=== PATIENT | female | born 1945 | race Caucasian/White ===

== ENCOUNTER 2016-09-04 21:55 | Inpatient (IN) | payer OTHER, MEDICARE ==
--- NOTE | ~2016-09-04 | CN ---
Consultation Report [facility] [address] [place]. [address] NAME: MICHELLE WALDRON : 43 STATUS : ADM IN PAT#: [id number] AGE: 71 ADM/REG DATE : 09/04/16 MR#: [id number] REPORT SERV DATE: 09/07/16 DICTATED BY: BARRY GARY DATE: 09/06/16 REPORT STATUS : Draft TRANSCRIBED BY: MODL DATE: 09/06/16 GI CONSULTATION DATE OF CONSULTATION: 09/06/2016 REASON FOR CONSULTATION: Anemia, history of gastric ulcer. HISTORY OF PRESENT ILLNESS: Ms Waldron is a 71-year-old, morbidly obese female with multiple comorbidities including diabetes, morbid obesity, chronic kidney disease stage III, coronary artery disease, asthma who presented to [facility] with a chief complaint of shortness of breath. She was found to be in atrial fibrillation with rapid ventricular response and also found to have bilateral pneumonia. On exam today, she is also actively wheezing, but has no increased work of breathing. Her hemoglobin and hematocrit have also gone down from 11 and 34.3, to 9.8 and 31.2 respectively. Platelets are 142, INR is 1.3. She denies any overt signs of bleeding. She had a brown bowel movement yesterday, formed, and denies any nausea, vomiting, or abdominal pain. No coffee-ground or hematemesis. She does report some epistaxis which is scant, and she believes that this is related to her irritation from her nasal cannula, and she reports that she has had a history of ulcer in the past and looking back at her records, which does confirm that she had an EGD and colonoscopy by Dr. Soliz, in March 2007 for pancytopenia. EGD showed normal esophagus, stomach showed mild gastritis in the antrum, and a small AVM that was not bleeding along the lesser curvature of the stomach. Coagulation was not attempted with APC. Retroflexed view of the fundus and cardia appeared grossly normal as per our records. Her duodenum was also found to be normal. Colonoscopy was also performed which showed a redundant and difficult colon as per Dr. Soliz's note. Bowel prep was not optimal although 90% of the colonic mucosa was reported to be seen. Small internal hemorrhoids were noted. PAST MEDICAL HISTORY: Diabetes with morbid obesity, depression, chronic kidney disease stage III, coronary artery disease, thrombocytopenia, urinary tract infection, and COPD. PAST SURGICAL HISTORY: Cataract surgery, hysterectomy, splenectomy, parotid gland removal. SOCIAL HISTORY: No smoking, alcohol, or drug use. MEDICATIONS: Reviewed. ALLERGIES: REVIEWED. PHYSICAL EXAMINATION: VITAL SIGNS: The patient is afebrile. Her vital signs are stable. GENERAL: The patient is awake, alert, and oriented x3. Morbidly obese. No acute distress. HEENT: Atraumatic, normocephalic. Anicteric. Mucous membranes moist. CARDIAC: Currently irregularly irregular. CHEST: Bilateral wheezing. Consultation Report [place] [id number] [place]. [address] NAME: MICHELLE WALDRON : 43 STATUS : ADM IN [facility]#: [id number] AGE: 71 ADM/REG DATE : 09/04/16 MR#: [id number] REPORT SERV DATE: 09/07/16 DICTATED BY: BARRY GARY DATE: 09/06/16 REPORT STATUS : Draft TRANSCRIBED BY: MODL DATE: 09/06/16 ABDOMEN: Obese, soft, minimal tenderness to palpation in the right lower quadrant but no rebound or guarding. Bowel sounds are normoactive. No epigastric pain. LABORATORY DATA: Labs show WBC 12.9, hemoglobin 9.8, hematocrit 31.2, platelets 142. INR is 1.3. Sodium 144, potassium 4.4, chloride 115, bicarb 24, BUN 24, creatinine 2.23. IMPRESSION AND PLAN: Anemia without any overt bleeding. No evidence of overt bleeding as there is no melena, coffee-ground or hematemesis. The patient reports brown stool yesterday. There does not appear to be any need for any urgent endoscopy at this time. She reports history of ulcer disease and believes that this was on the 2006 endoscopy. I will look further at her other records at the other hospitals particularly in the [facility] to see if we can obtain any endoscopy report. Otherwise EGD and colonoscopy by Dr. Soliz are as mentioned above. I will continue to follow with you for now. Please call with any questions. MODESTO/NEHA Barry Gary MD / [id number] CC: Nancy Kiser M.D.
--- NOTE | ~2016-09-04 | DS ---
Discharge Summary [id number] [place]. [address] NAME: MICHELLE BROWN : 43 STATUS : ADM IN [facility]#: [id number] AGE: 71 ADM/REG DATE : 09/04/16 MR#: [id number] REPORT SERV DATE: 09/16/16 DICTATED BY: IVAN CALDERÓN DATE: 09/16/16 REPORT STATUS : Draft TRANSCRIBED BY: MODL DATE: 09/16/16 ADMISSION DATE: 09/04/2016 DISCHARGE DATE: 09/16/2016 DISCHARGE DIAGNOSES: 1. Acute atrial fibrillation with rapid ventricular response. Currently rate controlled. 2. Atrial thrombus. 3. Right abdominal wall hematoma. 4. Chronic kidney disease. Creatinine back to baseline. 5. Acute kidney disease, now resolved. 6. Lymphotocytosis. Review of records reveal that it is chronic. 7. Fungal dermatitis of the skin folds of the abdomen. 8. Anemia most likely related to use of anticoagulation. 9. Type 2 diabetes mellitus. 10.Gout. 11.Gastroesophageal reflux. 12.Cervical myelopathy. 13.Rheumatoid arthritis. 14.Coronary artery disease. 15.Hyperlipidemia. 16.Osteoporosis. 17.Generalized debility. CONSULTANTS DURING THIS HOSPITALIZATION: 1. Dr. Indigo Marcelo off Gastroenterology. 2. Ramos Allen MD, of Cardiology. 3. Corbin Castellano M.D., of Cardiology. 4. Bonifacio Guzman M.D., [facility], [facility], of Cardiology. INVASIVE PROCEDURES DONE DURING THIS HOSPITALIZATION: Transesophageal echocardiogram as outlined in the interim summary dictated by Dr. Su. BRIEF HISTORY OF PRESENT ILLNESS: The patient is a 71-year-old female transferred from [facility] with a medical history of morbid obesity, chronic kidney disease stage 3, COPD came in with increased shortness of breath to atrial fibrillation with rapid ventricular response. For detailed history and physical exam, please see note dictated by Dr. Naveen Beavers on 09/04/2016. HOSPITAL COURSE: After being admitted to the hospital, this patient was followed by Dr. Su. Please refer to interim summary dictated by Dr. Su on 09/12/2016. I took over this patient's care on 09/14/2016. This patient was doing fairly well. She was noted to have atrial thrombus. She had been placed on Eliquis despite the elevated creatinine and dose adjustments were done. She continued to improve. She did have ESBL UTI that has been completely treated with seven days of meropenem. Meropenem has now been discontinued. Her right wall abdominal hematoma has remained stable. Her H and H have remained fairly stable around 9 to 10. All consultants have signed off. We have been able to wean her off but we Discharge Summary [place] [address] [facility] [address] NAME: MICHELLE BROWN : 43 STATUS : ADM IN PAT#: [id number] AGE: 71 ADM/REG DATE : 09/04/16 MR#: [id number] REPORT SERV DATE: 09/16/16 DICTATED BY: IVAN CALDERÓN DATE: 09/16/16 REPORT STATUS : Draft TRANSCRIBED BY: NEHA DATE: 09/16/16 will assess her home O2 with ambulation as she continuously has COPD and wheezing. Otherwise, she remains stable. Her diabetes was managed with subcutaneous insulin. We will place her on insulin as she would be a better candidate with her chronic kidney disease. Otherwise she is being discharged in stable condition to follow up with subspecialty physicians and primary care physician. DISCHARGE DISPOSITION: Home. DISCHARGE ACTIVITY: As tolerated. DISCHARGE DIET: 1800-calorie [employer] [employer] Diet. DISCHARGE MEDICATIONS: Eliquis 2.5 mg p.o. twice daily, Cardizem CD 240 mg once daily, NovoLog subcu 5 units prior to each meal 3 times daily, Lopressor 25 mg p.o. twice daily, Nystat powder twice daily to the skin folds of the abdomen. Sodium bicarb 1300 mg once daily, DuoNeb every four hours via nebulizer. Dulera 2 puffs twice daily, Levemir 10 units subcu at bedtime, albuterol two puffs every four hours p.r.n. for shortness of breath, Visine tears, and Tylenol 100 mg three times daily. DISCHARGE FOLLOWUP: Will be with Dr. Jordy Javier as recommended by Dr. Chiang. With Dr. Donaldo Prado in one week. More than 35 minutes spent planning this patient's discharge, reconciling medications, writing prescriptions, discussing hospital care, and followup with the patient and arranging proper discharge and documenting this discharge. SHERMAN/NEHA Ivan Calderón M.D. / [id number] CC: Dale Camargo MD Calvin Bell, M.D.
--- NOTE | ~2016-09-04 | CN ---
Consultation Report [facility] [address] [place]. [address] NAME: MICHELLE WALDRON : 43 STATUS : ADM IN [facility]#: [id number] AGE: 71 ADM/REG DATE : 09/04/16 MR#: [id number] REPORT SERV DATE: 09/07/16 DICTATED BY: DATE: REPORT STATUS : Draft TRANSCRIBED BY: MODSaida DATE: 09/06/16 CONSULTATION REPORT DATE OF CONSULTATION: REASON FOR CONSULTATION: CKD. HISTORY OF PRESENT ILLNESS: Ms Waldron is a 71-year-old white female with a history of CKD, followed by Dr. Menard in the past. I do not have records, but on review of computer records, it looks like she has had a baseline creatinine of around 2 since 2009 at least. She has known diabetes and hypertension. She has had some type of bleeding disorder and rheumatoid arthritis. She presented to the hospital at another facility and was transferred here with shortness of breath. Creatinine is stable since admission from 2 to 2.2. She states before coming in she was having some urinary hesitancy. No nausea, vomiting, or diarrhea. Shortness of breath is better since admission. Edema is at her baseline. No unusual rashes or skin lesions. No dysuria or hematuria. PAST MEDICAL HISTORY: CKD, stage III; COPD; atrial fibrillation; rheumatoid arthritis; cervical myelopathy; type 2 diabetes; blood clots; hypertension; some type of bleeding disorders; splenectomy; parathyroidectomy; cataract surgery; hysterectomy; hemorrhoid surgery; and spine surgery. FAMILY MEDICAL HISTORY: Positive for cancer and heart disease. No end-stage renal disease. SOCIAL HISTORY: Lives with family. No tobacco, alcohol, or illicit drug use. ALLERGIES: KEFLEX, SULFA, MORPHINE, PENICILLIN, FOSAMAX, GOLD, LACTOSE, AND CHLORINE. MEDICATIONS: At the time of consultation, Lovenox, NovoLog, Lopressor, Mycostatin, and Protonix. REVIEW OF SYSTEMS: A 12-point review of systems was obtained and negative with the exception of that in the HPI. PHYSICAL EXAMINATION: VITAL SIGNS: Temp 99.1, blood pressure 100/52, pulse 111, respiratory rate 18, and O2 saturation is 96%. GENERAL: This is a pleasant, cooperative, overweight white female. She is awake, alert, and oriented x3, in no acute distress, and answers questions appropriately. HEENT: Normocephalic and atraumatic. Conjunctivae are clear. Sclerae are anicteric. Pupils are equal and round. Oral mucosa is moist. NECK: Neck is supple and thick. I do not hear any carotid bruits. RESPIRATIONS: Even and unlabored. Breath sounds are clear to auscultation. Consultation Report [facility] [address] [address] NAME: MICHELLE WALDRON : 43 STATUS : ADM IN PAT#: [id number] AGE: 71 ADM/REG DATE : 09/04/16 MR#: [id number] REPORT SERV DATE: 09/07/16 DICTATED BY: DATE: REPORT STATUS : Draft TRANSCRIBED BY: MODL DATE: 09/06/16 HEART: Rate is irregularly irregular and increased. ABDOMEN: Obese. No CVA tenderness. BACK: Within normal limits. EXTREMITIES: She has a trace to 1+ edema on the left, trace on the right. SKIN: Pale, warm, dry, and intact. No unusual rash or skin lesions. NEURO: No focal deficits. Mood and affect, pleasant and appropriate. PERTINENT LABS AND X-RAYS: She had a V/Q scan, there was low probability of PE. She had bilateral lower extremity ultrasounds that were negative. Urine: It did have 100 mg/dL of protein, 31 red blood cells per high-powered field and moderate bacteria. Sodium 144, potassium 4.4, chloride 115, CO2 of 19, BUN of 24, creatinine of 32.2, calcium 8.4, and albumin of 2.2. Troponin 0.05. WBCs 1200, H and H 9 and 31, and platelets 142,000. BNP of 361. IMPRESSION: 1. Chronic kidney disease, stage III. Creatinine looks to be at baseline. 2. Atrial fibrillation with rapid ventricular response. 3. Chronic obstructive pulmonary disease. 4. Type 2 diabetes. 5. Urinary tract infection. PLAN/RECOMMENDATION: Creatinine is consistent with what looks like her baseline as far back as 2009. We will follow labs one more day. She has already had urine studies. I would not do any further workup. If she is stable again tomorrow, we will sign off. We will follow I's and O's and labs along with you. She is being treated for her urinary tract infection and culture is pending. We will follow along with you. Thank you for the consultation. MARÍA/NEHA STEPHEN Rothman / [id number] CC: Dale Philip M.D.
--- NOTE | ~2016-09-04 | HP ---
History And Physical [place] [address] [place]. [address] NAME: MICHELLE BROWN : 43 STATUS : ADM IN [facility]#: [id number] AGE: 71 ADM/REG DATE : 09/04/16 MR#: [id number] REPORT SERV DATE: 09/07/16 DICTATED BY: JOAN CHÁVEZ DATE: 09/05/16 REPORT STATUS : Draft TRANSCRIBED BY: MODL DATE: 09/05/16 DATE OF ADMISSION: 09/04/2016 CHIEF COMPLAINT: Shortness of breath. Transfer from [facility]. ACCEPTING PHYSICIAN: Dr. Turner. HISTORY OF PRESENT ILLNESS: The patient is a 71-year-old female, past medical history of obesity; CKD stage III; COPD; atrial fibrillation; diabetes type 2; blood clots, not on anticoagulation secondary to bleeding history; hypertension who reports that she has had increasing shortness of breath, has had exposure to flu with son having flu that she lives and more dyspnea on exertion. The patient has also had coughing up sputum, different colors, has had bilateral mild difficulty with breathing including chest discomfort with deep breaths, but no baseline chest discomfort. Has had decreased p.o. intake during this current issue, but reports overall has had slightly increased weight gain. The patient again reports that pain is more pleuritic, this would be with exertion, nonradiating, occurred over the last three days, progressively since today with cough production. There are no worsening or relieving symptoms. The patient upon evaluation at outside facility was noted to be in atrial fibrillation with RVR thought to be in acute COPD exacerbation, concern for PE with elevated D-dimer, and also found to have bilateral pneumonia on imaging, although this report is not currently available. REVIEW OF SYSTEMS: GENERAL: Denies any fever or chills, but has had increased fatigue. HEENT: No vision changes or sore throat. Has had cough. LUNGS: Has cough with sputum production. No wheezing, but has been with increased short of breath, dyspnea on exertion. HEART: Occasional pleuritic type chest discomfort with fast heart rate. ABDOMEN: No nausea, vomiting, or diarrhea. : No dysuria or hematuria. MUSCULOSKELETAL: Has chronic joint pain and swelling in lower extremities with mild numbness in the left lower extremity and it has been somewhat constant. SKIN: No rashes or itching. ENDO: Slightly colder than usual, but no high blood sugars. HEME: No acute bleeding or bruising. LYMPHS: No enlarged lymph nodes on lymph report. PSYCH: No anxiety or hallucinations reported. NEURO: No headache or syncope episodes. 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 SURGICAL HISTORY: Splenectomy, parathyroidectomy, cataracts, hysterectomy, hemorrhoidectomy, cervical spine surgery. History And Physical [address] [address] NAME: MICHELLE BROWN : 43 STATUS : ADM IN [facility]#: [id number] AGE: 71 ADM/REG DATE : 09/04/16 MR#: [id number] REPORT SERV DATE: 09/07/16 DICTATED BY: JOAN CHÁVEZ DATE: 09/05/16 REPORT STATUS : Draft TRANSCRIBED BY: NEHA DATE: 09/05/16 ALLERGIES: TO KEFLEX, SULFA, MORPHINE, LACTOSE, PENICILLIN, FOSAMAX, MILK, AND CHLORINE FROM TAP WATER. SOCIAL HISTORY: No smoking, alcohol, or illicits. Lives with sister and son. FAMILY HISTORY: Heart disease. Colon cancer in mother. Rectal cancer, cirrhosis. Family garage helper, Dr. Jordy Javier, had appointment on 08/11/2016, but did not know, so has not made this appointment. PHYSICAL EXAMINATION: VITAL SIGNS: Heart rate of 129, blood pressure 119/68, oxygenation 95% on 5 L, respiratory rate 17. GENERAL: No acute distress, but obese, elderly. EYES: No scleral icterus. EOMI. ENT: Nares patent. Tongue midline. NECK: No JVD. Large neck. CHEST: Equal chest expansion. RESPIRATORY: Polyphonic breath sounds around with decreased breath sounds in lower lung cruz. Positive cough with mild clearing with cough. CHEST: Increased AP diameter. CV: Irregularly irregular. Bilateral lower extremity edema. Cap refill less than 2 seconds. Warm extremities. ABDOMEN: Soft, nontender. Central obesity. : Deferred. MUSCULOSKELETAL: Moves all extremities x4. Bilateral edema with left side mild. No asymmetric swelling, but reports numbness on the lower extremity on the left side. No erythema and no clear Lb sign. SKIN: Warm and dry. PSYCH: Appropriate mood and affect. NEURO: Alert and oriented. Moves all extremities x4. Symmetrical smile. Sensations intact on right side. Only decreased on left side, leg. Otherwise, the patient reports numbness from prior DVT history and still current numbness. LABS: From outside facility and EKG sinus tachycardia. Chest x-ray report not available. WBC count 16.5, H and H 10.7 and 34.3, MCV 105, platelets 125, bands 1%. Sodium 139, potassium 4.5, chloride 110, BUN 26, creatinine 2.05 prior in the 2s in our system, magnesium 1.8. D-dimer of 1660, high normal about 300 in outside system. INR 1.0. BNP 724. Rapid strep negative. Flu negative. ASSESSMENT AND PLAN: 1. Atrial fibrillation with rapid ventricular response. 2. Bilateral pneumonia reported. 3. Chronic obstructive pulmonary disease history with questionable exacerbation reported from outside facility. History And Physical [address] [address] NAME: MICHELLE BROWN : 43 STATUS : ADM IN [facility]#: [id number] AGE: 71 ADM/REG DATE : 09/04/16 MR#: [id number] REPORT SERV DATE: 09/07/16 DICTATED BY: JOAN CHÁVEZ DATE: 09/05/16 REPORT STATUS : Draft TRANSCRIBED BY: NEHA DATE: 09/05/16 4. Rule out pulmonary embolism and likely deep venous thrombosis with prior history of deep venous thrombosis. 5. Diabetes type 2. 6. Systemic inflammatory response syndrome. 7. Chronic kidney disease stage III. 8. Coronary artery disease. 9. Bleeding history. 10.Hypertension. PLAN: 1. For atrial fibrillation with RVR, the patient has history of atrial fibrillation, this is not new onset as reviewed per records. Treat underlying pneumonia and possible COPD, may be also have a component of DVT. The patient is on atenolol every other day at 12. 12.5 dose. I will start Coreg, diltiazem, and the patient has been given this at outside facility with improvement. Monitor labs and CHADS2-VASc score of 4. The patient declines warfarin at this time as the patient reports that she was told not to take it due to bleeding history and he reports she almost bled out. 2. Bilateral pneumonia. This is reported. Awaiting review of chest x-ray from records. I will order repeat chest x-ray. Levaquin has already been started from outside facility due to allergy history and monitor clinically. Check labs and cultures. 3. Chronic obstructive pulmonary disease history. Questionable exacerbation, but no current active wheeze at this time. O2, DuoNebs. We will hold off steroids at this time and treat underlying pneumonia. 4. Rule out PE, likely DVT. The patient does have elevated D-dimer, although clinical cause for dyspnea, likely secondary to pneumonia. This was confirmed. The patient was already given treatment dose of Lovenox. Given the patient's CKD status, we will change to heparin drip. We will check ultrasound of lower extremities. Unable to perform CT PE protocol due to baseline CKD, has history of left leg blood clot. We will also order V/Q scan which is possible to be intermediate due to recurrent pneumonia component. We will need to obtain records for best course of anticoagulation if positive. 5. Diabetes type 2. Sliding scale insulin. Check A1c. 6. SIRS, tachycardia with leukocytosis. Treatment as above. 7. CKD stage III, stable. 8. Coronary artery disease. Beta carmen. Obtain records. Follows with Dr. Javier. 9. Bleeding history. The patient refuses Coumadin secondary to prior bleed history, although the indications would have been for prior DVTs and atrial fibrillation. I would like to try to obtain records if possible from PCP and garage helper and try to optimize for medication for anticoagulation. 10.Hypertension. I will like to change atenolol to cardioprotective medications of Coreg and additionally add CCB for rate control. 11.All questions answered. DISPOSITION: Pending findings of above. Guarded prognosis secondary to multitude of presenting illnesses. History And Physical [address] [place]. [address] NAME: MICHELLE BROWN JALEEL : 43 STATUS : ADM IN [facility]#: [id number] AGE: 71 ADM/REG DATE : 09/04/16 MR#: [id number] REPORT SERV DATE: 09/07/16 DICTATED BY: JOAN CHÁVEZ DATE: 09/05/16 REPORT STATUS : Draft TRANSCRIBED BY: NEHA DATE: 09/05/16 DDN/NEHA Joan Chávez MD / [id number] CC: vIan Calderón M.D.
--- NOTE | ~2016-09-04 | IDS ---
Interim Discharge Summary [facility] [address] [place]. [address] NAME: MICHELLE BROWN : 43 STATUS : ADM IN [facility]#: [id number] AGE: 71 ADM/REG DATE : 09/04/16 MR#: [id number] REPORT SERV DATE: 09/12/16 DICTATED BY: RANDELL RICK DATE: 09/12/16 REPORT STATUS : Draft TRANSCRIBED BY: MODL DATE: 09/12/16 ADMISSION DATE: 09/04/2016 DISCHARGE DATE: CONSULT: Dr. Allen for Cardiology, Dr. Marcelo for GI, and Dr. Snow for Renal. PROCEDURES DONE: On 09/07/2016, NICOLE shows left atrium was moderately dilated. There are two definitive thrombi in left atrium. The first was a very large thrombus that originated in the left atrial appendage and extended from left atrial appendage across the entire posterior and superior aspect of the left atrium. A second pedunculated, more spherical appearing left atrial appendage thrombus was attached to the interatrial septum. Left and right superior pulmonary veins appear grossly normal in caliber. Left ventricle was grossly normal in size and visually estimated LV ejection fraction of 50%. There was no regional wall motion abnormality seen. Right atrium was mildly dilated. Superior and inferior vena cava appeared normal. There were no mass thrombus seen. Right ventricle grossly normal in size and systolic function. There was no mass thrombus seen. [id number] aortic stenosis with mild regurgitation, secondary to calcific degeneration. Mild mitral stenosis with mild mitral regurg. On 09/08/2016, CT abdomen without contrast: Right abdominis rectus sheath hematoma. Only the abdomen was examined. including the pelvis. suspected hematoma is probably larger than estimated here. No acute intraabdominal process. Small bilateral pleural effusion. REASON FOR ADMISSION: Shortness of breath. HISTORY OF HOSPITAL STAY: A 71-year-old white female transferred from [facility] with past medical history of morbid obesity; chronic kidney disease, stage III; COPD; atrial fibrillation, diabetes type 2; hypertension; presenting with shortness of breath, unknown duration. The patient was transferred from [facility] to [facility] secondary for shortness of breath which is secondary to atrial fibrillation with RVR. Initially also the patient's bilateral pneumonia with subsequent chest x-ray shows negative. More importantly, Cardiology was consulted regarding the patient's atrial fibrillation and the patient underwent a NICOLE which showed a thrombus in the left atrium. In addition, the patient also has aortic stenosis. Once the NICOLE diagnosed, the patient with a left atrium thrombus, the patient was started on anticoagulation. Unfortunately, the patient developed hematoma. The patient required two units of packed RBC when the patient's hemoglobin dropped more than 2 g. Subsequently after transfusion, the patient's hemoglobin has been stable. Cardiology initially put the Coumadin on hold and will be restarting anticoagulation soon. In addition, the patient is also having acute renal failure with a creatinine of 2.85. At this time, ultrasound of the kidney shows nothing significant other than kidneys are not obstructed and atrophy bilaterally with decreased echogenicity. At this time, the patient is being treated medically for the patient's acute renal failure. DIAGNOSES ON DISCHARGE: 1. Shortness of breath secondary to atrial fibrillation and RVR, much improved. Interim Discharge Summary [address] [address] NAME: MICHELLE BROWN : 43 STATUS : ADM IN [facility]#: [id number] AGE: 71 ADM/REG DATE : 09/04/16 MR#: [id number] REPORT SERV DATE: 09/12/16 DICTATED BY: RANDELL RICK DATE: 09/12/16 REPORT STATUS : Draft TRANSCRIBED BY: MODSaida DATE: 09/12/16 2. Atrial fibrillation with RVR, the patient is going to be rate controlled with diltiazem. Regarding the patient's anticoagulation, the patient is a high risk for noncompliance. Discussed with Cardiology whether the patient can be switched from Coumadin to Eliquis if possible. Cardiology felt we can do the switch to Eliquis if the patient can afford medication. In the meantime, Case Management consulted for Eliquis affordability. 3. Left atrial thrombus. At this time, anticoagulation on hold secondary to the upper quadrant hematoma. We will restart anticoagulation whether Coumadin or heparin pending affordability. 4. Right upper quadrant hematoma currently stable. H and H have been stable, status post transfusion. 5. Anemia secondary to hematoma, resolved. 6. Diabetes type 2. The patient's blood sugar has been stable. 7. Urinary tract infection secondary to Escherichia coli with ESBL. The patient has been on Merrem, status post culture and sensitivity. Unfortunately, the patient is allergic to extensive medications of cephalosporins, penicillin, and sulfa. In addition, Escherichia coli is multiresistant except for nitrofurantoin, Merrem, and Zosyn. Therefore, the patient has been started on Merrem during the hospital stay once the culture and sensitivities were known. Hopefully, the patient will continue Merrem until discharge and will not need any p.o. medication. 8. Leukocytosis, secondary to reabsorption of hematoma. The patient's WBC has been slowly trending down. We will continue to measure the patient's WBC. FBJ/MODL Randell Rick MD / [id number] CC: MD Johan Rutledge MD
--- NOTE | ~2016-09-04 | CN ---
Consultation Report [facility] [address] [place]. [address] NAME: MICHELLE WALDRON : 43 STATUS : ADM [facility]#: [id number] AGE: 71 ADM/REG DATE : 09/04/16 MR#: [id number] REPORT SERV DATE: 09/07/16 DICTATED BY: FAUSTINA ALLEN DATE: 09/07/16 REPORT STATUS : Draft TRANSCRIBED BY: MODL DATE: 09/07/16 CARDIOLOGY CONSULTATION DATE OF CONSULTATION: 09/05/2016 REQUESTING PHYSICIAN: Ivan Calderón M.D. REASON FOR CONSULTATION: Atrial fibrillation and left atrial mass in a 71-year-old woman with a history of coronary heart disease and chronic atrial fibrillation. HISTORY OF PRESENT ILLNESS: Ms Waldron is a 71-year-old woman with a history of atrial fibrillation and coronary heart disease, who is a patient of Dr. Jordy Javier. Apparently, Dr. Javier does not see patients in this facility and therefore [facility] has been consulted. The patient apparently was in her usual state of health until several days prior to admission. She has had the progressive onset of dyspnea and worsening of her chronic lower extremity edema. She does have a history of COPD. She is having some atypical chest pain, but denies symptoms suggestive of angina. She was initially seen at [facility], but has been transferred to [facility] for treatment of presumed COPD exacerbation and atrial fibrillation with rapid ventricular response. The patient has had a bilateral lower extremity duplex, which revealed no evidence of DVT. The patient had a transthoracic echocardiogram performed, which shows mildly decreased left ventricular systolic function with evidence of a left atrial mass. The [facility] has been consulted for further workup of the patient's left atrial mass. PAST MEDICAL HISTORY: 1. Reported history of coronary heart disease status post percutaneous coronary intervention in the distant past-details are unclear. 2. Chronic kidney disease, stage 3. 3. Chronic obstructive pulmonary disease. 4. Chronic atrial fibrillation. 5. Rheumatoid arthritis. 6. Type 2 diabetes. 7. Gout. 8. Gastroesophageal reflux disease. 9. Osteoporosis. SURGICAL HISTORY: Significant for splenectomy, parathyroidectomy, hysterectomy, hemorrhoidectomy, cervical spinal surgery, and bilateral cataract extraction. FAMILY HISTORY: Significant for coronary heart disease and colon cancer. Otherwise, noncontributory. Consultation Report [facility] [address] [place]. [address] NAME: MICHELLE WALDRON : 43 STATUS : ADM IN PAT#: [id number] AGE: 71 ADM/REG DATE : 09/04/16 MR#: [id number] REPORT SERV DATE: 09/07/16 DICTATED BY: FAUSTINA ALLEN DATE: 09/07/16 REPORT STATUS : Draft TRANSCRIBED BY: MODSaida DATE: 09/07/16 SOCIAL HISTORY: The patient apparently has no history of smoking. She denies alcohol or illicit drug use. She lives at home with her sister and son. ALLERGIES: THE PATIENT HAS MULTIPLE DOCUMENTED ALLERGIES INCLUDING THE FOLLOWIN. KEFLEX. 2. SULFA DRUGS. 3. MORPHINE. 4. GOLD. 5. PENICILLIN G. 6. ALENDRONATE. 7. MILK. 8. LACTOSE. HOME MEDICATIONS: 1. Acetaminophen 1 g p.o. three times daily. 2. Albuterol two puffs four times daily as needed. 3. Atenolol 12.5 mg every other day. 4. Glipizide 5 mg p.o. daily. 5. Visine ophthalmologic drops daily. 6. Nitroglycerin patch 0.2 mg/hour daily. REVIEW OF SYSTEMS: A complete twelve-system review was performed. This was noncontributory except for the pertinent positives and negatives noted in the history of present illness above. PHYSICAL EXAMINATION: VITAL SIGNS: Temperature is 99.3 degrees Fahrenheit, blood pressure is 100/52 mmHg, heart rate is 102 beats per minute and irregular, respirations 20, oxygen saturation is 96% on 2 L nasal cannula. CONSTITUTIONAL: The patient is a chronically ill-appearing, older white woman, who is mildly tachypneic, but otherwise in no acute distress. EYES: PERRL, EOMI, clear conjunctiva. HEAD/MNT: NCAT with moist mucous membranes and grossly normal hard and soft palate. NECK: Supple with no obvious thyromegaly or lymphadenopathy CARDIOVASCULAR: There is an irregularly irregular rhythm with a variable S1 and a diminished aortic component of the second heart sound. There is a grade 2/6 systolic murmur noted at the right upper sternal border. PULMONARY: There are bibasilar rales noted. There is globally decreased air movement. ABDOMINAL: Soft, non-tender, non-distended with no hepatosplenomegaly noted. EXTREMITIES: The patient has 2+ pitting edema of the lower extremities, as well as 1+ edema of the upper extremities. MUSCULOSKELETAL: Grossly normal strength and range of motion in all extremities. INTEGUMENTARY: Skin appears intact with no bruises, wounds or active lesions noted. Consultation Report [facility] [address] [place]. [address] NAME: MICHELLE WALDRON : 43 STATUS : ADM IN [facility]#: [id number] AGE: 71 ADM/REG DATE : 09/04/16 MR#: [id number] REPORT SERV DATE: 09/07/16 DICTATED BY: FAUSTINA ALLEN DATE: 09/07/16 REPORT STATUS : Draft TRANSCRIBED BY: NEHA DATE: 09/07/16 NEURO/PSYCH: Alert and oriented x3, with no dysarthria, facial droop or lateralizing weakness noted. IMAGING: A twelve-lead EKG: The twelve-lead EKG shows atrial fibrillation with a rapid ventricular response and an incomplete left bundle-branch block pattern. Chest X-ray: The patient has had a chest x-ray that shows small bilateral pleural effusions with bibasilar atelectasis. A Port-A-Cath was in place on the right. The exam is suggestive of mild cardiomegaly. V/Q scan: This is a low probability for pulmonary embolism. LABORATORY DATA: Cell count show a white blood cell count of 15.4, hemoglobin 11, hematocrit 34, and platelets 151. INR is 1.2. PTT 46. Procalcitonin is 0.08. Sodium is 147, potassium 4.6, chloride is 117, BUN 25, and creatinine is 2.02. Glucose is 74. Albumin has decreased to 2.4. Troponin I is normal at 0.04. TSH is 1.7 with a free T3 of 2.86. Transthoracic echocardiogram: This shows a left ventricular ejection fraction of 40% with borderline right ventricular dysfunction. There is dilation of the left and right atria. There is a left atrial mass. This is possibly consistent with thrombus, but not well characterized. There is moderate aortic stenosis. ASSESSMENT AND PLAN: 1. Left atrial mass: Possibly thrombus. The patient apparently is not on an oral anticoagulant. This appears to be due to a history of gastrointestinal bleeding, though the reason why the patient is not anticoagulated is unclear at this time. The Gastroenterology Service has been consulted regarding the patient's history of gastrointestinal bleeding. For now, the patient will be started on a heparin drip, as Gastrointestinal feels that this is safe. We will proceed with transesophageal echocardiography for further characterization of the patient's left atrial mass. 2. Chronic atrial fibrillation: Again, if not otherwise contraindicated, the patient will be started on an oral anticoagulant. We will determine whether this is appropriate after transesophageal echocardiography. 3. Combined systolic and diastolic heart failure: We will proceed with gentle diuresis as tolerated. Thank you for allowing me to participate in the care Ms Waldron. The Cardiology Service will continue to follow the patient during this hospitalization. Consultation Report [address] [place]. [address] NAME: MICHELLE WALDRON : 43 STATUS : ADM IN [facility]#: [id number] AGE: 71 ADM/REG DATE : 09/04/16 MR#: [id number] REPORT SERV DATE: 09/07/16 DICTATED BY: FAUSTINA ALLEN DATE: 09/07/16 REPORT STATUS : Draft TRANSCRIBED BY: NEHA DATE: 09/07/16 [facility]/NEHA Faustina Allen MD / [id number] CC: Nancy Kiser M.D.
--- NOTE | ~2016-09-04 | TEE ---
Transesophageal Echocardiogram [place] [id number] [place]. [address] NAME: MICHELLE BROWN : 43 STATUS : ADM IN PAT#: [id number] AGE: 71 ADM/REG DATE : 09/04/16 MR#: [id number] REPORT SERV DATE: 09/07/16 DICTATED BY: CORBIN ABRAHAM DATE: 09/07/16 REPORT STATUS : Draft TRANSCRIBED BY: MODL DATE: 09/07/16 NICOLE REPORT NICOLE REASON: This is a 71-year-old female with new onset atrial fibrillation and left atrial appendage thrombus suggested on transthoracic echocardiogram. PROCEDURES PERFORMED: Included 2D, 3D, color, and spectral Doppler. 3D interrogation of the aortic valve, mitral valve, and large left atrial appendage thrombus were performed with personal online manual manipulation of 3D data set. TECH: MARÍA. The overall quality of the study was good. Informed consent was obtained, sign on the chart prior to proceeding. A time-out was performed. Sedation was per Anesthesia, and esophageal intubation was without difficulty. FINDINGS: CHAMBERS: 1. The left atrium was mildly-moderately dilated. There were two definitive thrombi in the left atrium. The first was a very large thrombus that originated in the left atrial appendage and extended from the left atrial appendage across the entire posterior and superior aspect of the left atrium. A second pedunculated and more spherical appearing left atrial appendage thrombus was attached to the interatrial septum. The left and right superior pulmonary veins appeared grossly normal in caliber. 2. The left ventricle was grossly normal in size with a visually estimated LVEF of 50%. There were no regional wall motion abnormalities seen. 3. The right atrium was mildly dilated. Superior and inferior vena cava appeared normal. There was no mass thrombus seen. 4. The right ventricle was grossly normal in size and systolic function. There was no mass thrombus seen. VALVES: 1. The aortic valve morphology was trileaflet. The leaflets were thickened and heavily calcified with severely restricted mobility. There was severe aortic stenosis by visual estimate. They correlate with the previous transthoracic echocardiogram demonstrated an aortic valve area of 0.95 cm2 by continuity equation. There was mild- moderate central aortic regurgitation. There were no valvular vegetations seen. 2. The mitral valve morphology was normal. There was severe annular calcification. The mitral leaflets were thickened with a moderately restricted posterior leaflets and mildly restricted anterior leaflet. There was mild mitral regurgitation. There was moderate mitral stenosis with a directed 3D planimetry area of 1.4 cm2. 3. The pulmonic valve was grossly normal with adequate mobility. There was no significant pulmonic regurgitation. 4. The tricuspid valve morphology was normal with fully mobile leaflets. There was trace- Transesophageal Echocardiogram [address] [address] NAME: MICHELLE BROWN JALEEL : 43 STATUS : ADM IN PAT#: [id number] AGE: 71 ADM/REG DATE : 09/04/16 MR#: [id number] REPORT SERV DATE: 09/07/16 DICTATED BY: CORBIN ABRAHAM. DATE: 09/07/16 REPORT STATUS : Draft TRANSCRIBED BY: NEHA DATE: 09/07/16 mild tricuspid regurgitation. Pulmonary pressures could not be estimated due to off axis nature of the TR jet. OTHER: The interatrial septum appeared intact by visual inspection with no evidence of interatrial shunt seen by color Doppler. There was trivial to small pericardial effusion. There was a small pleural effusion. The descending thoracic aorta was normal in caliber with mild complex atherosclerotic changes and no aneurysm or dissection seen. COMPLICATIONS: None. CONCLUSION: 1. MILD-MODERATE LEFT ATRIAL ENLARGEMENT WITH TWO DEFINITIVE THROMBI, OUTLINED ABOVE. ONE LARGE THROMBUS EXTENDING FROM THE LEFT ATRIAL APPENDAGE TO THE SUPERIOR AND POSTERIOR ASPECTS OF THE ATRIAL WALL. A SECOND MORE SPHERICAL AND PEDUNCULATED THROMBUS ASSOCIATED WITH THE INTERATRIAL SEPTUM. 2. MODERATE-SEVERE AORTIC STENOSIS WITH MILD REGURGITATION, SECONDARY TO CALCIFIC DEGENERATION. 3. MODERATE MITRAL STENOSIS WITH MILD MITRAL REGURGITATION. 4. NORMAL LV SIZE WITH A VISUALLY ESTIMATED LVEF OF 50%. THESE FINDINGS WERE DISCUSSED AND REVIEWED WITH DR. GRIER AT THE TIME OF PROCEDURE AND INTERPRETATION. AEA/EVANL Corbin Abraham M.D. / [id number] CC: Nancy Kiser M.D.
[~2016-09-04 21:55] MED LIST: ACET500CAP PO; AMB10 PO; CARTIA XT120 MG/24 PO; ENDOCET1 TA1 PO; HUMULIN N1 ML SC; LIPITOR10 PO; METHOC750B PO; PRILOSEC OTC20 MG PO; VOLT75 PO; ZESTRIL5 MG PO
[2016-09-05 02:37] LABS: MEAN CORPUS HGB CONC 32.1 g/dL (32.0-36.0); MEAN CORPUSCULAR HEMOGLOB 33.7 pg (26.0-34.0); MEAN PLATELET VOLUME 10.2 fL (9.2-13.0); RED CELL COUNT 3.26 10/6/uL (4.0-5.6); WHITE BLOOD CELLS 15.4 10/3/uL (4.5-10.5)
[2016-09-05 02:38] LABS: HEMATOCRIT 34.3 % (36.0-48.0); MANUAL DIFF YES %; MEAN CORPUSCULAR VOLUME 105.2 fL (80-100); PLATELET COUNT 151 10/3/uL (150-400); RBC DISTRIBUTION WIDTH 16.9 % (12.0-16.0)
[2016-09-05 02:45] LABS: INTERNATIONAL NORMAL RATI 1.2 UNITS (-); PROTIME (NOT ORD) 15.2 SEC (12.0-14.5)
[2016-09-05 02:55] LABS: A/G RATIO 0.7 (0.7-1.9); ALBUMIN 2.4 G/DL (3.5-5.0); ALKALINE PHOSPHATASE 81 U/L (45-117); BUN (BLOOD UREA NITROGEN) 25 MG/DL (6-23); CALCIUM, SERUM 8.5 MG/DL (8.5-10.4); CHLORIDE, SERUM 117 MMOL/L (96-112); CO2 (CARBON DIOXIDE) 21 MMOL/L (24-34); CREATININE 2.02 MG/DL (0.55-1.02); GFR AFRICAN AMERICAN 28 ML/MIN (>=60); GFR NON AFRICAN AMERICAN 24 ML/MIN (>=60); GLOBULIN 3.3 G/DL (2.5-4.1); GLUCOSE, SERUM 74 MG/DL (60-99); POTASSIUM, SERUM 4.6 MMOL/L (3.5-5.3); SGOT(AST) 20 U/L (5-40); SGPT(ALT) 10 U/L (5-65); SODIUM, SERUM 147 MMOL/L (135-148); TOTAL BILIRUBIN 0.4 MG/DL (0-1.2); TOTAL PROTEIN 5.7 G/DL (6.0-8.5); TROPONIN I 0.04 NG/ML (<0.05)
[2016-09-05 03:25] LABS: EOSINOPHILS 7 %; EOSINOPHILS ABSOLUTE (CALC) 1.08 10/3/uL (0.0-0.53); LYMPHOCYTES 40 %; LYMPHOCYTES ABSOLUTE (CALC) 6.16 10/3/uL (0.67-4.30); MONOCYTES 4 %; MONOCYTES ABSOLUTE (CALC) 0.62 10/3/uL (0.21-1.20); NEUTROPHILS ABSOLUTE (CALC) 7.55 10/3/uL (2.02-8.40); SEGMENTED NEUTROPHIL (0) 49 %; TOTAL NUCLEATED CELLS 100
[2016-09-05 03:28] LABS: ANISOCYTOSIS 1+ (5-10/OIF) (0-5/OIF); MACROCYTES 1+ (5-10/OIF) (0-5/OIF); PLATELET ESTIMATE ADQ (ADEQUATE)
[2016-09-05 03:31] LABS: PROCALCITONIN 0.08 ng/mL (<0.5)
[2016-09-05 10:02] LABS: ASCORBIC ACID (UR NOT ORDER) 20 (NEG); BILIRUBIN, URINE NEGATIVE (NEG); KETONE, URINE TRACE MG/DL (NEG); LEUKOCYTE ESTERASE(NOT OR LARGE (NEG)
[2016-09-05 10:03] LABS: WBC (NOT ORDERED) (RFLEX) > 182 (0-5)
[2016-09-05] MEDS ORDERED: ATEN25 PO (14:42)
[2016-09-05] MEDS ORDERED: PROAIR HFA INH (14:43)
[2016-09-05] MEDS ORDERED: GLUCOTROL5 PO (14:44)
[2016-09-05] MEDS ORDERED: NITROII10C TOP (14:45)
[2016-09-05] MEDS ORDERED: VISINE TEARS15 ML OPH (14:46)
[2016-09-05] MEDS ORDERED: ACET500CAP PO (14:47)
[2016-09-05 15:09] LABS: PHOSPHORUS, SERUM 3.5 MG/DL (2.5-4.5)
[2016-09-06 06:48] LABS: HEMATOCRIT 31.2 % (36.0-48.0); HEMOGLOBIN 9.8 g/dL (12.0-16.0); MEAN CORPUS HGB CONC 31.4 g/dL (32.0-36.0); MEAN CORPUSCULAR HEMOGLOB 32.7 pg (26.0-34.0); MEAN PLATELET VOLUME 10.4 fL (9.2-13.0); PLATELET COUNT 142 10/3/uL (150-400); RBC DISTRIBUTION WIDTH 17.1 % (12.0-16.0); WHITE BLOOD CELLS 12.9 10/3/uL (4.5-10.5)
[2016-09-06 06:53] LABS: INTERNATIONAL NORMAL RATI 1.3 UNITS (-)
[2016-09-06 06:55] LABS: MANUAL DIFF YES %
[2016-09-06 07:05] LABS: ALBUMIN 2.2 G/DL (3.5-5.0); BUN (BLOOD UREA NITROGEN) 24 MG/DL (6-23); CALCIUM, SERUM 8.4 MG/DL (8.5-10.4); CHLORIDE, SERUM 115 MMOL/L (96-112); CO2 (CARBON DIOXIDE) 19 MMOL/L (24-34); CREATININE 2.23 MG/DL (0.55-1.02); GFR AFRICAN AMERICAN 25 ML/MIN (>=60); GFR NON AFRICAN AMERICAN 21 ML/MIN (>=60); PHOSPHORUS, SERUM 3.7 MG/DL (2.5-4.5); POTASSIUM, SERUM 4.4 MMOL/L (3.5-5.3); SODIUM, SERUM 144 MMOL/L (135-148)
[2016-09-06 07:06] LABS: GLUCOSE, SERUM 117 MG/DL (60-99)
[2016-09-06 07:10] LABS: TROPONIN I 0.05 NG/ML (<0.05)
[2016-09-06 07:11] LABS: ANISOCYTOSIS 1+ (5-10/OIF) (0-5/OIF); LYMPHOCYTES 51 %; LYMPHOCYTES ABSOLUTE (CALC) 6.58 10/3/uL (0.67-4.30); MONOCYTES 5 %; MONOCYTES ABSOLUTE (CALC) 0.65 10/3/uL (0.21-1.20); NEUTROPHILS ABSOLUTE (CALC) 5.68 10/3/uL (2.02-8.40); PLATELET ESTIMATE SLT DEC (ADEQUATE); SEGMENTED NEUTROPHIL (0) 44 %; TOTAL NUCLEATED CELLS 100
[2016-09-06 07:12] LABS: MACROCYTES 1+ (5-10/OIF) (0-5/OIF); POLYCHROMASIA 1+ (2-5/OIF) (0-1/OIF); SMUDGE CELLS OCC
[2016-09-06 07:46] LABS: PROCALCITONIN 0.11 ng/mL (<0.5)
[2016-09-07 07:19] LABS: HEMATOCRIT 31.5 % (36.0-48.0); MEAN CORPUS HGB CONC 31.7 g/dL (32.0-36.0); MEAN PLATELET VOLUME 10.9 fL (9.2-13.0); PLATELET COUNT 144 10/3/uL (150-400); RBC DISTRIBUTION WIDTH 16.8 % (12.0-16.0); RED CELL COUNT 3.03 10/6/uL (4.0-5.6); WHITE BLOOD CELLS 14.8 10/3/uL (4.5-10.5)
[2016-09-07 07:20] LABS: MANUAL DIFF YES %
[2016-09-07 07:46] LABS: BAND NEUTROPHILS 2 %; LYMPHOCYTES 53 %; LYMPHOCYTES ABSOLUTE (CALC) 7.84 10/3/uL (0.67-4.30); MONOCYTES 6 %; MONOCYTES ABSOLUTE (CALC) 0.89 10/3/uL (0.21-1.20); NEUTROPHILS ABSOLUTE (CALC) 6.07 10/3/uL (2.02-8.40); SEGMENTED NEUTROPHIL (0) 39 %; TOTAL NUCLEATED CELLS 100
[2016-09-07 07:47] LABS: MACROCYTES 1+ (5-10/OIF) (0-5/OIF); PLATELET ESTIMATE SLT DEC (ADEQUATE); POLYCHROMASIA 1+ (2-5/OIF) (0-1/OIF)
[2016-09-07 07:50] LABS: BUN (BLOOD UREA NITROGEN) 23 MG/DL (6-23); CALCIUM, SERUM 8.3 MG/DL (8.5-10.4); CHLORIDE, SERUM 112 MMOL/L (96-112); CO2 (CARBON DIOXIDE) 20 MMOL/L (24-34); FERRITIN 705 NG/ML (8-252); GFR AFRICAN AMERICAN 24 ML/MIN (>=60); GFR NON AFRICAN AMERICAN 21 ML/MIN (>=60); GLUCOSE, SERUM 108 MG/DL (60-99); POTASSIUM, SERUM 4.4 MMOL/L (3.5-5.3); SODIUM, SERUM 145 MMOL/L (135-148)
[2016-09-08 04:15] LABS: HEMATOCRIT 31.4 % (36.0-48.0); HEMOGLOBIN 10.4 g/dL (12.0-16.0); MEAN CORPUS HGB CONC 33.1 g/dL (32.0-36.0); MEAN CORPUSCULAR HEMOGLOB 34.8 pg (26.0-34.0); MEAN PLATELET VOLUME 10.7 fL (9.2-13.0); PLATELET COUNT 137 10/3/uL (150-400); RBC DISTRIBUTION WIDTH 16.4 % (12.0-16.0); RED CELL COUNT 2.99 10/6/uL (4.0-5.6); WHITE BLOOD CELLS 14.2 10/3/uL (4.5-10.5)
[2016-09-08 04:17] LABS: MANUAL DIFF YES %
[2016-09-08 04:34] LABS: A/G RATIO 0.7 (0.7-1.9); ALBUMIN 2.3 G/DL (3.5-5.0); BUN (BLOOD UREA NITROGEN) 22 MG/DL (6-23); CALCIUM, SERUM 8.5 MG/DL (8.5-10.4); CHLORIDE, SERUM 113 MMOL/L (96-112); CO2 (CARBON DIOXIDE) 20 MMOL/L (24-34); CREATININE 2.29 MG/DL (0.55-1.02); GFR AFRICAN AMERICAN 24 ML/MIN (>=60); GFR NON AFRICAN AMERICAN 21 ML/MIN (>=60); GLOBULIN 3.1 G/DL (2.5-4.1); PHOSPHORUS, SERUM 4.2 MG/DL (2.5-4.5); POTASSIUM, SERUM 4.5 MMOL/L (3.5-5.3); SGOT(AST) 23 U/L (5-40); SGPT(ALT) 9 U/L (5-65); SODIUM, SERUM 144 MMOL/L (135-148); TOTAL BILIRUBIN 0.2 MG/DL (0-1.2); TOTAL PROTEIN 5.4 G/DL (6.0-8.5)
[2016-09-08 04:37] LABS: ALKALINE PHOSPHATASE 59 U/L (45-117); GLUCOSE, SERUM 131 MG/DL (60-99)
[2016-09-08 05:27] LABS: EOSINOPHILS 4 %; EOSINOPHILS ABSOLUTE (CALC) 0.57 10/3/uL (0.0-0.53); LYMPHOCYTES 44 %; LYMPHOCYTES ABSOLUTE (CALC) 6.25 10/3/uL (0.67-4.30); MACROCYTES 1+ (5-10/OIF) (0-5/OIF); MONOCYTES 10 %; MONOCYTES ABSOLUTE (CALC) 1.42 10/3/uL (0.21-1.20); NEUTROPHILS ABSOLUTE (CALC) 5.96 10/3/uL (2.02-8.40); PLATELET ESTIMATE SLT DEC (ADEQUATE); SEGMENTED NEUTROPHIL (0) 42 %; TOTAL NUCLEATED CELLS 100
[2016-09-08 18:07] LABS: HEMATOCRIT 31.5 % (36.0-48.0); HEMOGLOBIN 10.3 g/dL (12.0-16.0)
[2016-09-09 00:33] LABS: HEMOGLOBIN 9.3 g/dL (12.0-16.0)
[2016-09-09 00:39] LABS: HEMATOCRIT 28.2 % (36.0-48.0)
[2016-09-09 08:08] LABS: HEMATOCRIT 26.3 % (36.0-48.0); HEMOGLOBIN 8.4 g/dL (12.0-16.0); MANUAL DIFF YES %; MEAN CORPUS HGB CONC 31.9 g/dL (32.0-36.0); MEAN CORPUSCULAR HEMOGLOB 33.7 pg (26.0-34.0); MEAN CORPUSCULAR VOLUME 105.6 fL (80-100); MEAN PLATELET VOLUME 10.6 fL (9.2-13.0); PLATELET COUNT 131 10/3/uL (150-400); RBC DISTRIBUTION WIDTH 16.7 % (12.0-16.0); RED CELL COUNT 2.49 10/6/uL (4.0-5.6); WHITE BLOOD CELLS 15.7 10/3/uL (4.5-10.5)
[2016-09-09 08:10] LABS: INTERNATIONAL NORMAL RATI 1.3 UNITS (-); PROTIME (NOT ORD) 15.8 SEC (12.0-14.5)
[2016-09-09 08:21] LABS: A/G RATIO 0.8 (0.7-1.9); ALBUMIN 2.3 G/DL (3.5-5.0); ALKALINE PHOSPHATASE 51 U/L (45-117); BUN (BLOOD UREA NITROGEN) 24 MG/DL (6-23); CALCIUM, SERUM 8.3 MG/DL (8.5-10.4); CHLORIDE, SERUM 114 MMOL/L (96-112); CO2 (CARBON DIOXIDE) 19 MMOL/L (24-34); CREATININE 2.51 MG/DL (0.55-1.02); GFR AFRICAN AMERICAN 21 ML/MIN (>=60); GFR NON AFRICAN AMERICAN 18 ML/MIN (>=60); GLOBULIN 2.9 G/DL (2.5-4.1); GLUCOSE, SERUM 110 MG/DL (60-99); PHOSPHORUS, SERUM 4.5 MG/DL (2.5-4.5); POTASSIUM, SERUM 4.9 MMOL/L (3.5-5.3); SGOT(AST) 19 U/L (5-40); SGPT(ALT) 8 U/L (5-65); SODIUM, SERUM 143 MMOL/L (135-148); TOTAL BILIRUBIN 0.4 MG/DL (0-1.2); TOTAL PROTEIN 5.2 G/DL (6.0-8.5)
[2016-09-09 08:36] LABS: BASOPHILS 1 %; BASOPHILS ABSOLUTE (CALC) 0.16 10/3/uL (0.0-0.16); EOSINOPHILS 1 %; EOSINOPHILS ABSOLUTE (CALC) 0.16 10/3/uL (0.0-0.53); LYMPHOCYTES 43 %; LYMPHOCYTES ABSOLUTE (CALC) 6.75 10/3/uL (0.67-4.30); MONOCYTES 6 %; MONOCYTES ABSOLUTE (CALC) 0.94 10/3/uL (0.21-1.20); NEUTROPHILS ABSOLUTE (CALC) 7.69 10/3/uL (2.02-8.40); NUCLEATED RED BLOOD CELLS 1 /100WBC (0); SEGMENTED NEUTROPHIL (0) 49 %; TOTAL NUCLEATED CELLS 100
[2016-09-09 08:37] LABS: BURR CELLS 1+ (3-10/OIF) (0-2/OIF); MACROCYTES 1+ (5-10/OIF) (0-5/OIF); PLATELET ESTIMATE SLT DEC (ADEQUATE); POIKILOCYTOSIS 1+ (5-10/OIF) (0-5/OIF)
[2016-09-09 21:01] LABS: HEMATOCRIT 32.2 % (36.0-48.0); HEMOGLOBIN 10.5 g/dL (12.0-16.0)
[2016-09-10 05:11] LABS: INTERNATIONAL NORMAL RATI 1.2 UNITS (-); PROTIME (NOT ORD) 15.5 SEC (12.0-14.5)
[2016-09-10 05:34] LABS: A/G RATIO 1.3 (0.7-1.9); ALKALINE PHOSPHATASE 49 U/L (45-117); CALCIUM, SERUM 8.5 MG/DL (8.5-10.4); CHLORIDE, SERUM 112 MMOL/L (96-112); CO2 (CARBON DIOXIDE) 16 MMOL/L (24-34); CREATININE 2.74 MG/DL (0.55-1.02); GFR AFRICAN AMERICAN 19 ML/MIN (>=60); GFR NON AFRICAN AMERICAN 17 ML/MIN (>=60); GLOBULIN 2.6 G/DL (2.5-4.1); POTASSIUM, SERUM 4.9 MMOL/L (3.5-5.3); SGOT(AST) 18 U/L (5-40); SGPT(ALT) 8 U/L (5-65); SODIUM, SERUM 141 MMOL/L (135-148); TOTAL BILIRUBIN 0.7 MG/DL (0-1.2); TOTAL PROTEIN 5.9 G/DL (6.0-8.5)
[2016-09-10 05:36] LABS: ALBUMIN 3.3 G/DL (3.5-5.0); BUN (BLOOD UREA NITROGEN) 28 MG/DL (6-23); GLUCOSE, SERUM 147 MG/DL (60-99); PHOSPHORUS, SERUM 3.5 MG/DL (2.5-4.5)
[2016-09-10 06:11] LABS: HEMOGLOBIN 10.2 g/dL (12.0-16.0); MEAN CORPUS HGB CONC 32.9 g/dL (32.0-36.0); MEAN CORPUSCULAR HEMOGLOB 33.2 pg (26.0-34.0); MEAN PLATELET VOLUME 10.5 fL (9.2-13.0); PLATELET COUNT 113 10/3/uL (150-400); RBC DISTRIBUTION WIDTH 17.7 % (12.0-16.0); WHITE BLOOD CELLS 19.1 10/3/uL (4.5-10.5)
[2016-09-10 06:15] LABS: RED CELL COUNT 3.07 10/6/uL (4.0-5.6)
[2016-09-10 06:16] LABS: MANUAL DIFF YES %
[2016-09-10 06:45] LABS: ANISOCYTOSIS 1+ (5-10/OIF) (0-5/OIF); BAND NEUTROPHILS 1 %; EOSINOPHILS 1 %; EOSINOPHILS ABSOLUTE (CALC) 0.19 10/3/uL (0.0-0.53); LYMPHOCYTES 34 %; LYMPHOCYTES ABSOLUTE (CALC) 6.49 10/3/uL (0.67-4.30); MACROCYTES 1+ (5-10/OIF) (0-5/OIF); MONOCYTES 9 %; MONOCYTES ABSOLUTE (CALC) 1.72 10/3/uL (0.21-1.20); PLATELET ESTIMATE DEC (ADEQUATE); SEGMENTED NEUTROPHIL (0) 55 %; TOTAL NUCLEATED CELLS 100
[2016-09-11 07:49] LABS: INTERNATIONAL NORMAL RATI 1.3 UNITS (-); PROTIME (NOT ORD) 16.5 SEC (12.0-14.5)
[2016-09-11 07:56] LABS: ALBUMIN 3.6 G/DL (3.5-5.0); BUN (BLOOD UREA NITROGEN) 26 MG/DL (6-23); CALCIUM, SERUM 8.5 MG/DL (8.5-10.4); CHLORIDE, SERUM 113 MMOL/L (96-112); CO2 (CARBON DIOXIDE) 18 MMOL/L (24-34); CREATININE 2.59 MG/DL (0.55-1.02); GFR AFRICAN AMERICAN 21 ML/MIN (>=60); GFR NON AFRICAN AMERICAN 18 ML/MIN (>=60); GLUCOSE, SERUM 122 MG/DL (60-99); PHOSPHORUS, SERUM 3.4 MG/DL (2.5-4.5); POTASSIUM, SERUM 4.7 MMOL/L (3.5-5.3); SODIUM, SERUM 142 MMOL/L (135-148)
[2016-09-11 08:03] LABS: HEMATOCRIT 31.7 % (36.0-48.0); HEMOGLOBIN 10.6 g/dL (12.0-16.0); MEAN CORPUS HGB CONC 33.4 g/dL (32.0-36.0); MEAN CORPUSCULAR HEMOGLOB 33.8 pg (26.0-34.0); MEAN PLATELET VOLUME 10.4 fL (9.2-13.0); NUCLEATED RED BLOOD CELLS 0.5 /100WBC (0-0); PLATELET COUNT 131 10/3/uL (150-400); RBC DISTRIBUTION WIDTH 17.3 % (12.0-16.0); RED CELL COUNT 3.14 10/6/uL (4.0-5.6); WHITE BLOOD CELLS 19.6 10/3/uL (4.5-10.5)
[2016-09-11 08:15] LABS: MANUAL DIFF YES %
[2016-09-11 10:14] LABS: BAND NEUTROPHILS 4 %; BASOPHILS 1 %; EOSINOPHILS 5 %; EOSINOPHILS ABSOLUTE (CALC) 0.98 10/3/uL (0.0-0.53); LYMPHOCYTES 34 %; LYMPHOCYTES ABSOLUTE (CALC) 6.66 10/3/uL (0.67-4.30); MONOCYTES 15 %; MONOCYTES ABSOLUTE (CALC) 2.94 10/3/uL (0.21-1.20); NEUTROPHILS ABSOLUTE (CALC) 8.82 10/3/uL (2.02-8.40); SEGMENTED NEUTROPHIL (0) 41 %; TOTAL NUCLEATED CELLS 100
[2016-09-11 10:15] LABS: ANISOCYTOSIS 1+ (5-10/OIF) (0-5/OIF); MACROCYTES 1+ (5-10/OIF) (0-5/OIF); PLATELET ESTIMATE SLT DEC (ADEQUATE); POLYCHROMASIA 1+ (2-5/OIF) (0-1/OIF); TEARDROP SHAPED RBCS OCC (0-2/OIF)
[2016-09-11 10:19] LABS: HOWELL JOLLY BODIES OCC (0-1); TOXIC GRANULATION SLT; VACUOLATED NEUTROPHILES OCC
[2016-09-11 10:20] LABS: HELMET CELLS OCC (0-2/OIF)
[2016-09-12 09:32] LABS: BASOPHILS 0.2 %; BASOPHILS ABSOLUTE 0.03 10/3/uL (0.0-0.16); EOSINOPHILS 5.5 %; EOSINOPHILS ABSOLUTE 1.04 10/3/uL (0.0-0.53); HEMATOCRIT 32.8 % (36.0-48.0); HEMOGLOBIN 10.7 g/dL (12.0-16.0); IMMATURE GRANULOCYTES 0.4 %; IMMATURE GRANULOCYTES ABSOLUTE 0.08 10/3/uL (0.0-0.11); LYMPHOCYTES ABSOLUTE 4.87 10/3/uL (0.67-4.30); MEAN CORPUS HGB CONC 32.6 g/dL (32.0-36.0); MEAN CORPUSCULAR HEMOGLOB 33.5 pg (26.0-34.0); MEAN CORPUSCULAR VOLUME 102.8 fL (80-100); MONOCYTES ABSOLUTE 3.19 10/3/uL (0.21-1.20); NEUTROPHILS 50.9 %; NEUTROPHILS ABSOLUTE 9.53 10/3/uL (2.02-8.40); NUCLEATED RED BLOOD CELLS 0.4 /100WBC (0-0); PLATELET COUNT 163 10/3/uL (150-400); RED CELL COUNT 3.19 10/6/uL (4.0-5.6); WHITE BLOOD CELLS 18.7 10/3/uL (4.5-10.5)
[2016-09-12 09:33] LABS: MANUAL DIFF NO %
[2016-09-12 09:36] LABS: INTERNATIONAL NORMAL RATI 1.3 UNITS (-); PROTIME (NOT ORD) 16.2 SEC (12.0-14.5)
[2016-09-12 09:46] LABS: A/G RATIO 1.3 (0.7-1.9); ALBUMIN 3.4 G/DL (3.5-5.0); ALKALINE PHOSPHATASE 44 U/L (45-117); CALCIUM, SERUM 8.6 MG/DL (8.5-10.4); CHLORIDE, SERUM 111 MMOL/L (96-112); CO2 (CARBON DIOXIDE) 19 MMOL/L (24-34); CREATININE 2.85 MG/DL (0.55-1.02); GFR AFRICAN AMERICAN 18 ML/MIN (>=60); GFR NON AFRICAN AMERICAN 16 ML/MIN (>=60); GLOBULIN 2.6 G/DL (2.5-4.1); PHOSPHORUS, SERUM 3.8 MG/DL (2.5-4.5); POTASSIUM, SERUM 5.2 MMOL/L (3.5-5.3); SGOT(AST) 19 U/L (5-40); SGPT(ALT) 9 U/L (5-65); SODIUM, SERUM 139 MMOL/L (135-148)
[2016-09-12 09:48] LABS: BUN (BLOOD UREA NITROGEN) 33 MG/DL (6-23); GLUCOSE, SERUM 165 MG/DL (60-99); TOTAL BILIRUBIN 1.2 MG/DL (0-1.2)
[2016-09-13 04:06] LABS: MEAN CORPUS HGB CONC 33.3 g/dL (32.0-36.0); MEAN CORPUSCULAR HEMOGLOB 33.7 pg (26.0-34.0); MEAN CORPUSCULAR VOLUME 101.2 fL (80-100); MEAN PLATELET VOLUME 10.7 fL (9.2-13.0); PLATELET COUNT 173 10/3/uL (150-400); RBC DISTRIBUTION WIDTH 16.2 % (12.0-16.0); RED CELL COUNT 3.26 10/6/uL (4.0-5.6); WHITE BLOOD CELLS 18.6 10/3/uL (4.5-10.5)
[2016-09-13 04:07] LABS: MANUAL DIFF YES %
[2016-09-13 04:14] LABS: INTERNATIONAL NORMAL RATI 1.3 UNITS (-)
[2016-09-13 04:20] LABS: ALBUMIN 3.1 G/DL (3.5-5.0); CALCIUM, SERUM 8.3 MG/DL (8.5-10.4); CHLORIDE, SERUM 112 MMOL/L (96-112); CO2 (CARBON DIOXIDE) 22 MMOL/L (24-34); CREATININE 2.75 MG/DL (0.55-1.02); GFR AFRICAN AMERICAN 19 ML/MIN (>=60); GFR NON AFRICAN AMERICAN 17 ML/MIN (>=60); POTASSIUM, SERUM 4.7 MMOL/L (3.5-5.3); SODIUM, SERUM 143 MMOL/L (135-148)
[2016-09-13 04:23] LABS: BUN (BLOOD UREA NITROGEN) 37 MG/DL (6-23); GLUCOSE, SERUM 115 MG/DL (60-99)
[2016-09-13 04:46] LABS: ANISOCYTOSIS 1+ (5-10/OIF) (0-5/OIF); BAND NEUTROPHILS 2 %; EOSINOPHILS 5 %; EOSINOPHILS ABSOLUTE (CALC) 0.93 10/3/uL (0.0-0.53); LYMPHOCYTES 26 %; LYMPHOCYTES ABSOLUTE (CALC) 4.84 10/3/uL (0.67-4.30); MACROCYTES 1+ (5-10/OIF) (0-5/OIF); MONOCYTES 10 %; MONOCYTES ABSOLUTE (CALC) 1.86 10/3/uL (0.21-1.20); NEUTROPHILS ABSOLUTE (CALC) 10.97 10/3/uL (2.02-8.40); SEGMENTED NEUTROPHIL (0) 57 %; TOTAL NUCLEATED CELLS 100
[2016-09-13 04:48] LABS: RBC MORPHOLOGY ABN (NORMAL)
[2016-09-13 15:47] LABS: A/G RATIO 1.3 (0.7-1.9); ALBUMIN 3.2 G/DL (3.5-5.0); BUN (BLOOD UREA NITROGEN) 40 MG/DL (6-23); CALCIUM, SERUM 8.3 MG/DL (8.5-10.4); CHLORIDE, SERUM 109 MMOL/L (96-112); CO2 (CARBON DIOXIDE) 25 MMOL/L (24-34); CREATININE 2.77 MG/DL (0.55-1.02); GFR AFRICAN AMERICAN 19 ML/MIN (>=60); GFR NON AFRICAN AMERICAN 16 ML/MIN (>=60); GLOBULIN 2.4 G/DL (2.5-4.1); GLUCOSE, SERUM 123 MG/DL (60-99); PHOSPHORUS, SERUM 4.3 MG/DL (2.5-4.5); POTASSIUM, SERUM 4.8 MMOL/L (3.5-5.3); SGOT(AST) 22 U/L (5-40); SGPT(ALT) 9 U/L (5-65); SODIUM, SERUM 143 MMOL/L (135-148); TOTAL BILIRUBIN 1.1 MG/DL (0-1.2); TOTAL PROTEIN 5.6 G/DL (6.0-8.5)
[2016-09-13 15:50] LABS: ALKALINE PHOSPHATASE 54 U/L (45-117)
[2016-09-14 07:24] LABS: HEMATOCRIT 32.8 % (36.0-48.0); HEMOGLOBIN 10.6 g/dL (12.0-16.0); MEAN CORPUS HGB CONC 32.3 g/dL (32.0-36.0); MEAN CORPUSCULAR HEMOGLOB 33.3 pg (26.0-34.0); MEAN CORPUSCULAR VOLUME 103.1 fL (80-100); MEAN PLATELET VOLUME 10.7 fL (9.2-13.0); PLATELET COUNT 197 10/3/uL (150-400); RBC DISTRIBUTION WIDTH 15.8 % (12.0-16.0); RED CELL COUNT 3.18 10/6/uL (4.0-5.6); WHITE BLOOD CELLS 17.8 10/3/uL (4.5-10.5)
[2016-09-14 07:26] LABS: MANUAL DIFF YES %
[2016-09-14 07:28] LABS: INTERNATIONAL NORMAL RATI 1.5 UNITS (-); PROTIME (NOT ORD) 17.6 SEC (12.0-14.5)
[2016-09-14 07:59] LABS: BAND NEUTROPHILS 1 %; EOSINOPHILS 1 %; EOSINOPHILS ABSOLUTE (CALC) 0.18 10/3/uL (0.0-0.53); LYMPHOCYTES 32 %; MONOCYTES 20 %; MONOCYTES ABSOLUTE (CALC) 3.56 10/3/uL (0.21-1.20); NEUTROPHILS ABSOLUTE (CALC) 8.37 10/3/uL (2.02-8.40); SEGMENTED NEUTROPHIL (0) 46 %; TOTAL NUCLEATED CELLS 100
[2016-09-14 08:00] LABS: PLATELET ESTIMATE ADQ (ADEQUATE); RBC MORPHOLOGY NORM (NORMAL); TOXIC GRANULATION SLT
[2016-09-15 05:35] LABS: INTERNATIONAL NORMAL RATI 1.5 UNITS (-); PROTIME (NOT ORD) 17.7 SEC (12.0-14.5)
[2016-09-16 05:17] LABS: HEMATOCRIT 30.7 % (36.0-48.0); HEMOGLOBIN 9.7 g/dL (12.0-16.0); MEAN CORPUS HGB CONC 31.6 g/dL (32.0-36.0); MEAN CORPUSCULAR HEMOGLOB 32.7 pg (26.0-34.0); MEAN CORPUSCULAR VOLUME 103.4 fL (80-100); MEAN PLATELET VOLUME 10.4 fL (9.2-13.0); PLATELET COUNT 225 10/3/uL (150-400); RBC DISTRIBUTION WIDTH 15.3 % (12.0-16.0); RED CELL COUNT 2.97 10/6/uL (4.0-5.6); WHITE BLOOD CELLS 16.3 10/3/uL (4.5-10.5)
[2016-09-16 05:21] LABS: MANUAL DIFF YES %
[2016-09-16 05:23] LABS: INTERNATIONAL NORMAL RATI 1.5 UNITS (-); PROTIME (NOT ORD) 18.2 SEC (12.0-14.5)
[2016-09-16 05:27] LABS: BUN (BLOOD UREA NITROGEN) 40 MG/DL (6-23); CALCIUM, SERUM 8.4 MG/DL (8.5-10.4); CHLORIDE, SERUM 107 MMOL/L (96-112); CREATININE 2.64 MG/DL (0.55-1.02); GFR AFRICAN AMERICAN 20 ML/MIN (>=60); GFR NON AFRICAN AMERICAN 17 ML/MIN (>=60); GLUCOSE, SERUM 102 MG/DL (60-99); PHOSPHORUS, SERUM 4.5 MG/DL (2.5-4.5); POTASSIUM, SERUM 5.3 MMOL/L (3.5-5.3); SODIUM, SERUM 138 MMOL/L (135-148)
[2016-09-16 05:28] LABS: CO2 (CARBON DIOXIDE) 20 MMOL/L (24-34)
[2016-09-16 06:25] LABS: BAND NEUTROPHILS 1 %; BASOPHILS 1 %; BASOPHILS ABSOLUTE (CALC) 0.16 10/3/uL (0.0-0.16); EOSINOPHILS 13 %; EOSINOPHILS ABSOLUTE (CALC) 2.12 10/3/uL (0.0-0.53); HOWELL JOLLY BODIES OCC (0-1); LYMPHOCYTES 39 %; LYMPHOCYTES ABSOLUTE (CALC) 6.36 10/3/uL (0.67-4.30); MACROCYTES 1+ (5-10/OIF) (0-5/OIF); MONOCYTES 8 %; NEUTROPHILS ABSOLUTE (CALC) 6.36 10/3/uL (2.02-8.40); PLATELET ESTIMATE ADQ (ADEQUATE); SEGMENTED NEUTROPHIL (0) 38 %; TOTAL NUCLEATED CELLS 100
[2016-09-16] MEDS ORDERED: ELIQUIS 2.5 MG2.5 MG PO (12:11)
[2016-09-16] MEDS ORDERED: CARDCD240 PO (12:12)
[2016-09-16] MEDS ORDERED: LOP25 PO (12:13)
[2016-09-16] MEDS ORDERED: NYSTATPOW TOP (12:15)
[2016-09-16] MEDS ORDERED: SODBICAR10 PO (12:16)
[2016-09-16] MEDS ORDERED: DULERA 200 MCG/13 GM INH (12:17)
[2016-09-16] MEDS ORDERED: DUONEB INH (12:18)
[2016-09-16] MEDS ORDERED: LEVEMFLXPN SC (12:19)
[2016-09-16] MEDS ORDERED: NOVOLOG SC (12:21)
== END 2016-09-16 18:28 | disposition home health service (06) | DRG 309 ==
LOC: 6NO 21:55
PROVIDERS: Hospitalist; Internal Medicine; Internal Medicine Cardiovascular Disease; Internal Medicine Interventional Cardiology; Internal Medicine Nephrology; Nurse Practitioner Family; Student in an Organized Health Care Education/Training Program
PROC: B246ZZ4 Ultrasonography of Right and Left Heart, Transesophageal (ICD-10-PCS; principal; 2016-09-07)
DX: I48.1 Persistent atrial fibrillation (principal); N17.9 Acute kidney failure, unspecified; N18.4 Chronic kidney disease, stage 4 (severe); E87.2 Acidosis; D62 Acute posthemorrhagic anemia; I50.42 Chronic combined systolic (congestive) and diastolic (congestive) heart failure; I13.0 Hypertensive heart and chronic kidney disease with heart failure and stage 1 through stage 4 chronic kidney disease, or unspecified chronic kidney disease; N39.0 Urinary tract infection, site not specified; J44.1 Chronic obstructive pulmonary disease with (acute) exacerbation; I51.3 Intracardiac thrombosis, not elsewhere classified; E66.01 Morbid (severe) obesity due to excess calories; M41.9 Scoliosis, unspecified; B37.2 Candidiasis of skin and nail; D72.820 Lymphocytosis (symptomatic); M81.0 Age-related osteoporosis without current pathological fracture; E78.5 Hyperlipidemia, unspecified; M06.9 Rheumatoid arthritis, unspecified; B96.20 Unspecified Escherichia coli [E. coli] as the cause of diseases classified elsewhere; I08.0 Rheumatic disorders of both mitral and aortic valves; Z68.32 Body mass index [BMI] 32.0-32.9, adult; M79.81 Nontraumatic hematoma of soft tissue; T45.515A Adverse effect of anticoagulants, initial encounter; M19.90 Unspecified osteoarthritis, unspecified site; I25.10 Atherosclerotic heart disease of native coronary artery without angina pectoris; E11.22 Type 2 diabetes mellitus with diabetic chronic kidney disease; G47.33 Obstructive sleep apnea (adult) (pediatric); Z16.12 Extended spectrum beta lactamase (ESBL) resistance; Z88.1 Allergy status to other antibiotic agents; Z88.0 Allergy status to penicillin; Z88.2 Allergy status to sulfonamides; Z88.5 Allergy status to narcotic agent; Z91.011 Allergy to milk products; Z86.73 Personal history of transient ischemic attack (TIA), and cerebral infarction without residual deficits; Z90.710 Acquired absence of both cervix and uterus; Z95.5 Presence of coronary angioplasty implant and graft
CPT/HCPCS: 36415; 71010; 71020; 74150; 76376; 76775; 78582; 80048; 80053; 80069; 81001; 82728; 82962; 83036; 83605; 83735; 83880; 84100; 84145; 84443; 84481; 84484; 85014; 85018; 85025; 85610; 85730; 86850; 86900; 86901; 86920; 87040; 87070; 87077; 87086; 87186; 87205; 93005; 93312; 93970; 93975; 94640; 94667; 94668; 97161-GP; A9270-GY; A9540; A9567; C8929; G8978-CK-GP; G8979-CJ-GP; G8980-CJ-GP; J1170; J1940; J1956; J2185; J2405; P9016; P9047; Q9957